=== PATIENT | male | born 1975 | race Caucasian/White ===

== ENCOUNTER 2019-05-21 05:25 | Day surgery (SDC) | payer OTHER ==
[2019-05-10 14:59] LABS: BASOPHILS # (AUTO) 0.1 X10'3 (0-0.2); BASOPHILS % (AUTO) 0.8 % (0-1); EOSINOPHILS # (AUTO) 0.2 X10'3 (0-0.9); EOSINOPHILS % (AUTO) 2.2 % (0-6); LYMPHOCYTES # (AUTO) 2.5 X10'3 (1.1-4.8); LYMPHOCYTES % (AUTO) 37.1 % (21-51); MEAN CORPUSCULAR HEMOGLOBIN 31.5 PG (27.0-31.0); MEAN CORPUSCULAR HGB CONC 34.4 g/dL (33.0-36.5); MEAN CORPUSCULAR VOLUME 91.5 FL (78-98); MEAN PLATELET VOLUME 7.8 FL (7.4-10.4); MONOCYTES # (AUTO) 0.6 X10'3 (0-0.9); MONOCYTES % (AUTO) 8.7 % (2-12); NEUTROPHILS # (AUTO) 3.4 X10'3 (1.8-7.7); NEUTROPHILS % (AUTO) 51.2 % (42-75); PRE OP HEMATOCRIT 45.1 % (42.0-52.0); PRE OP HEMOGLOBIN 15.5 g/dL (14.0-17.9); PRE OP PLATELET COUNT 218 X10'3 (140-440); RED BLOOD COUNT 4.92 X10'6 (4.70-6.10); RED CELL DISTRIBUTION WIDTH 13.3 % (11.5-14.5)
[2019-05-10 15:10] LABS: ALBUMIN 4.1 G/DL (3.4-5.0); ALBUMIN/GLOBULIN RATIO 1.2 (1.1-1.5); ALKALINE PHOSPHATASE 60 IU/L (46-116); BLOOD UREA NITROGEN 15 MG/DL (7-18); CALCIUM 9.1 MG/DL (8.5-10.1); CHLORIDE 106 MMOL/L (99-107); CREATININE 0.88 MG/DL (0.60-1.10); PRE OP ANION GAP 7 (8-16); PRE OP AST 50 U/L (10-37); PRE OP BILIRUB, TOTAL 0.4 MG/DL (0.0-1.0); PRE OP GLUCOSE 77 MG/DL (70-104); PRE OP POTASSIUM 3.8 MMOL/L (3.4-5.1); PRE OP SODIUM 141 MMOL/L (135-145); TOTAL CARBON DIOXIDE 27.6 MMOL/L (24-32); TOTAL PROTEIN 7.5 G/DL (6.4-8.2); eGFR > 90 ML/MIN
[2019-05-10 15:11] LABS: PRE OP ALT 119 U/L (30-65)
[2019-05-21] VITALS (19 sets, daily range): BP systolic 111–162; BP diastolic 56–92
[~2019-05-21] VITALS: Ht 180.3 cm; Wt 140.2 kg
[~2019-05-21 05:25] MED LIST: IBUP-1984 PO; ringers solution, lacted 1,000 ML IV SCH
[2019-05-21] MEDS ORDERED: famotidine 10mg tablet PO ONE (05:30)
[2019-05-21] MEDS ORDERED: ceFAZolin/D5W- 1GM premix 50 ML IV ONE (05:30)
[2019-05-21] MEDS ORDERED: cefazolin/dext.iso 2gm/100ml 100 ML IV ONE (05:30)
[2019-05-21] MEDS ORDERED: LIDOcaine 1% (10mg/ml) 2ml vial ONE (06:01)
[2019-05-21] MEDS ORDERED: BUPIVAcaine/PF 2.5 mg/ml (0.25%) 30ml vial ONE (06:44)
[2019-05-21] MEDS ORDERED: sevoflurane 250ml liquid IH ONE (07:11)
[2019-05-21] MEDS ORDERED: MIDAZolam 5mg/5ml vial ONE (07:18)
[2019-05-21] MEDS ORDERED: fentaNYL/PF 50MCG/1 ML 2ML syringe ONE ×2 (07:18→08:12)
[2019-05-21] MEDS ORDERED: ROPIVAcaine 0.5% (5mg/ml) 30ml vial ONE (08:25)
[2019-05-21] MEDS ORDERED: neostigmine methylsulfate 1 MG/ML 10ml vial ONE (08:25)
[2019-05-21] MEDS ORDERED: ondansetron/PF 4mg/2ml inj ONE (08:25)
[2019-05-21] MEDS ORDERED: rocuronium 10mg/ml inj IV ONE (08:25)
[2019-05-21] MEDS ORDERED: propofol inj 20 ML IV ONE (08:25)
[2019-05-21] MEDS ORDERED: dexamethasone sod phosphate 4mg/ml inj. ONE (08:25)
[2019-05-21] MEDS ORDERED: glycopyrrolate 0.2mg/ml inj ONE (08:25)
[2019-05-21] MEDS ORDERED: LIDOcaine 2% (20mg/ml) 5ml vial ONE (08:25)
[2019-05-21] MEDS ORDERED: ROPIVAcaine 0.2% (10 MG/5 ML) BOLUS INJECTION INTERSCALE PRN (09:30)
[2019-05-21] MEDS ORDERED: ringers solution, lacted 1,000 ML IV SCH (09:30)
[2019-05-21] MEDS ORDERED: proCHLORperazine 10 MG/2 ml inj IV PRN (09:30)
[2019-05-21] MEDS ORDERED: morphine 4 MG/ML inj SYRINge IV PRN ×2 (09:30)
[2019-05-21] MEDS ORDERED: meperidine/PF 25mg/ml syringe IV PRN ×3 (09:30)
[2019-05-21] MEDS ORDERED: ondansetron/PF 4mg/2ml inj IV PRN ×2 (09:30→10:05)
[2019-05-21] MEDS: potassium cl 20mEq in 1/2 NS 1,000 ML IV SCH ×3 (10:04→21:45)
[2019-05-21] MEDS ORDERED: bisacodyl 10mg suppository rectal RC PRN (10:05)
[2019-05-21] MEDS ORDERED: acetaminophen 325mg tablet PO PRN (10:05)
[2019-05-21] MEDS ORDERED: diphenhydrAMINE 25mg capsule PO PRN ×2 (10:05)
[2019-05-21] MEDS ORDERED: oxyCODONE IR 5mg (immed. release) tablet PO PRN (10:05)
[2019-05-21] MEDS ORDERED: magnesium hydroxide 30ml (MOM) UD suspension PO PRN (10:05)
[2019-05-21] MEDS ORDERED: HYDROmorphone inj. 0.5 MG/0.5 ML DISP.SYRIN IV PRN (10:05)
[2019-05-21] MEDS ORDERED: HYDROmorphone 1 mg/ml syringe IV PRN (10:05)
--- NOTE | 2019-05-21 10:20 | NUR ---
Received from OR via BED, accompanied by Anesthesiologist DR BLANCHARD and report given by Anesthesiologist. PT VERY DROWSY, NO S/S OF DISTRESS/DISCOMFORT, RIGHT SHOULDER W/GAUZE DRSG COVERING INCISION/DRSG CDI, RIGHT ARM IN IMMOBILIZER, FINGERS PWD, DIRECTOR WOMEN 1-2 SECONDS. Addendum: 05/21/19 at 1057 by Pavithra Kim RN Amended: Links added.
[2019-05-21] MEDS ORDERED: ipratropium 0.5 MG/2.5ML nebule IH ONE (10:30)
[2019-05-21] MEDS: ROPIVAcaine 0.2%/PF PUMP/bolus 550 ML INTERSCALE SCH ×2 (11:08→21:30)
--- NOTE | 2019-05-21 11:40 | NUR ---
Report called to receiving nurse. Transferred via BED, 2 BAGS OF PERSONAL Belongings SENT W/PT TO ROOM 4012B, [facility], CALL LIGHT GIVEN TO PT, SIDE RAILS UP X 2, RECEIVING RN AT BEDSIDE, PRESENT. Special Issues communicated to receiving nurse. YES. Addendum: 05/21/19 at 1150 by Pavithra Kim RN Amended: Links added.
--- NOTE | 2019-05-21 11:40 | NUR ---
Patient in room ORTHO 4012. I have received report from Pavithra STAFFORD and had the opportunity to ask questions and assume patient care.
--- NOTE | 2019-05-21 12:17 | NUR ---
Placed on continuous pulse ox. Observed to have no IVF running. Spoke with pharmacist regarding duplicate orders of lactated ringer fluid and KCl compatibility. Per pharmacist only KCl 20mEq in 1/2 NS needs to be run as the LR is only used in the OR and they will discontinue that.
[2019-05-21] MEDS: acetaminophen 325mg tablet PO SCH ×2 (14:13→21:31)
[2019-05-21] MEDS: ceFAZolin/D5W- 1GM premix 50 ML IV SCH ×2 (16:24→23:52)
--- NOTE | 2019-05-21 18:55 | NUR ---
Patient in room ORTHO 4012. I have received report from NYDIA Duque and had the opportunity to ask questions and assume patient care.
--- NOTE | 2019-05-21 19:08 | NUR ---
Per dayshift RN, patient pushed for one bolus just prior to the RN leaving the floor.
--- NOTE | 2019-05-21 19:11 | NUR ---
Per doctor Ozzy, okay to use home cpap.
--- NOTE | 2019-05-21 19:17 | NUR ---
Problems reprioritized. Patient report given, questions answered & plan of care reviewed with Taylor STAFFORD. After saying goodbye to patient, he informed me that he had just pushed his on cue button. Reported to Taylor STAFFORD.
[2019-05-21] MEDS ORDERED: VANCOMYCIN 1gm/H2O 200ml PB 200 ML IV SCH (20:00)
[2019-05-21] MEDS ORDERED: sennosides 8.6mg tablet PO SCH (21:00)
[2019-05-22 02:00] VITALS: BP 117/75
[2019-05-22] MEDS: potassium cl 20mEq in 1/2 NS 1,000 ML IV SCH (02:04)
[2019-05-22] MEDS: ROPIVAcaine 0.2%/PF PUMP/bolus 550 ML INTERSCALE SCH (02:23)
[2019-05-22] MEDS: acetaminophen 325mg tablet PO SCH ×2 (02:24→07:47)
[2019-05-22] MEDS: oxyCODONE IR 5mg (immed. release) tablet PO PRN ×2 (02:25→07:50)
--- NOTE | 2019-05-22 06:00 | NUR ---
Patient in room ORTHO 4012. I have received report from MAGGY STAFFORD and had the opportunity to ask questions and assume patient care.
--- NOTE | 2019-05-22 06:17 | NUR ---
Problems reprioritized. Patient report given, questions answered & plan of care reviewed with NYDIA Salinas.
[2019-05-22 06:22] VITALS: BP 122/77
[2019-05-22 06:46] LABS: BASOPHILS # (AUTO) 0.1 X10'3 (0-0.2); BASOPHILS % (AUTO) 1.1 % (0-1); EOSINOPHILS % (AUTO) 0 % (0-6); HEMATOCRIT 39.5 % (42.0-52.0); HEMOGLOBIN 13.5 g/dl (14.0-17.9); LYMPHOCYTES # (AUTO) 1.7 X10'3 (1.1-4.8); LYMPHOCYTES % (AUTO) 13.6 % (21-51); MEAN CORPUSCULAR HEMOGLOBIN 31.7 PG (27.0-31.0); MEAN CORPUSCULAR HGB CONC 34.2 g/dL (33.0-36.5); MEAN CORPUSCULAR VOLUME 92.6 FL (78-98); MEAN PLATELET VOLUME 8.1 FL (7.4-10.4); MONOCYTES # (AUTO) 0.7 X10'3 (0-0.9); MONOCYTES % (AUTO) 5.4 % (2-12); NEUTROPHILS % (AUTO) 79.9 % (42-75); PLATELET COUNT 192 X10'3 (140-440); RED BLOOD COUNT 4.27 X10'6 (4.70-6.10); RED CELL DISTRIBUTION WIDTH 13.3 % (11.5-14.5); WHITE BLOOD COUNT 12.5 X10'3 (4.5-11.0)
[2019-05-22 07:05] LABS: ANION GAP 8 (8-16); CHLORIDE 105 MMOL/L (99-107); POTASSIUM 4.1 MMOL/L (3.5-5.1); SODIUM 138 MMOL/L (135-145); TOTAL CARBON DIOXIDE 25.2 MMOL/L (24-32)
[2019-05-22] MEDS ORDERED: aspirin 325mg tablet PO SCH (08:30)
[2019-05-23] MEDS ORDERED: acetaminophen 325mg tablet PO PRN (10:05)
== END 2019-05-22 09:30 | disposition home or self-care (01) ==
LOC: PAS 05:25 → ORTHO 4S 11:07 → PAS 05-22 09:30
PROVIDERS: ATTEND Orthopaedic Surgery
PROC: 0RHJ04Z Insertion of Internal Fixation Device into Right Shoulder Joint, Open Approach (ICD-10-PCS; 2019-05-21)
PROC: 0RQG0ZZ Repair Right Acromioclavicular Joint, Open Approach (ICD-10-PCS; 2019-05-21)
PROC: 0LQ10ZZ Repair Right Shoulder Tendon, Open Approach (ICD-10-PCS; principal; 2019-05-21 07:11)
DX: M75.111 Incomplete rotator cuff tear or rupture of right shoulder, not specified as traumatic (principal); M25.511 Pain in right shoulder; E66.01 Morbid (severe) obesity due to excess calories; Z68.41 Body mass index [BMI] 40.0-44.9, adult; G47.33 Obstructive sleep apnea (adult) (pediatric); Z87.891 Personal history of nicotine dependence; X58.XXXA Exposure to other specified factors, initial encounter; Y93.89 Activity, other specified; Y92.69 Other specified industrial and construction area as the place of occurrence of the external cause; Z01.812 Encounter for preprocedural laboratory examination; R53.1 Weakness
CPT/HCPCS: 23130; 23412; 36415; 71046; 80051; 80053; 82948; 85025; 93005; 94640; C1713; J0690; J1100; J1170; J2001; J2250; J2405; J2704; J2710; J2795; J3010; J3370; J3490; J7120; A4565; A4618; A6449; A7000; G0378; J3480